=== PATIENT | male | born 1960 | race Caucasian/White ===

== ENCOUNTER 2022-11-22 16:28 | Emergency (ER) | payer BC, SELFPAY ==
[2022-11-22] VITALS (14 sets, daily range): BP systolic 127–148; BP diastolic 87–93; PULSE 73–88; RESP 16; TEMP 37–37.1; O2SAT 93–98; BMI 28.0
--- NOTE | 2022-11-22 16:41 | ED.GENADULT ---
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 He took a couple long bike rides this weekend. The air quality was listed as poor this weekend, and was very humid. He subsequently has had some tightness in his chest. No history of cardiac cardiac disease, no history of pulmonary disease. He has no family history of cardiac disease. Patient has had no swelling or bleeding. He does report that he has had a little bit of pleuritic nature of the pain is anterior chest read takes a deep breath knee has some discomfort, he has never had a blood clot, he has had no leg swelling. No trauma or injury. He also reports that he feels a little warm over the last few hours. Almost like as if he has a fever. His O2 sat is 95% on room air and he is afebrile. Related Data Home Medications Medication Instructions Recorded Confirmed tadalafil 5 mg tablet 5 mg PO DAILY 11/22/22 11/22/22 Previous Rx's Medication Instructions Recorded prednisone 20 mg tablet 20 mg PO BID #6 tabs 11/22/22 Allergies Allergy/AdvReac Type Severity Reaction Status Date / Time allopurinol Allergy Intermediate Verified 11/22/22 16:41 naproxen Allergy Intermediate Verified 11/22/22 16:41 Sulfa (Sulfonamide Allergy Intermediate Verified 11/22/22 16:41 Antibiotics) erythromycin base Allergy Mild Verified 11/22/22 16:41 Review of Systems Status of ROS: Reports: 10 or more systems reviewed and unremarkable except as noted in History and below PFSH PFS Social History Smoking Status: Former smoker Do you use any of these nicotine containing products: None How often do you have a drink containing alcohol: 2-3 times a week How many standard drinks containing alcohol do you have on a typical day: 1 or 2 How often do you have six or more drinks on one occasion: Never AUDIT-C Alcohol total score: 3 service: No Exam Narrative: Exam Narrative: Objective: Vital signs are largely unremarkable Alert orient x3 no distress, no scleral icterus, no facial asymmetry Neck is supple Chest is clear no rales or wheezing Heart rhythm regular heart murmur no ectopy noted Abdomen benign soft nontender no masses Extremities are no edema neurologic nonfocal good peripheral perfusion noted. The patient does report that he has had some chronic swelling due to muscle tear in his left ankle and calf area on the left. No other specific focal complaints or findings Const: Vital Signs, click to edit/add: Vital Signs - 24 hr 11/22/22 16:35 11/22/22 16:47 11/22/22 17:00 Temperature 98.7 F Pulse Rate 88 83 Pulse Rate [Pulse Oximeter] 88 Respiratory Rate 16 Blood Pressure Blood Pressure [Le ft Upper Arm] 148/93 H Pulse Oximetry 95 97 96 Oxygen Delivery Me thod Room Air 11/22/22 17:02 11/22/22 17:36 11/22/22 17:36 Temperature Pulse Rate 85 79 Pulse Rate [Pulse Oximeter] Respiratory Rate Blood Pressure 139/87 Blood Pressure [Le ft Upper Arm] Pulse Oximetry 96 98 98 Oxygen Delivery Me thod 11/22/22 18:00 11/22/22 18:05 11/22/22 18:21 Temperature 98.6 F Pulse Rate 80 80 79 Pulse Rate [Pulse Oximeter] Respiratory Rate Blood Pressure 138/93 H Blood Pressure [Le ft Upper Arm] Pulse Oximetry 96 94 97 Oxygen Delivery Me thod Room Air 11/22/22 18:22 11/22/22 18:41 11/22/22 19:00 Temperature Pulse Rate 79 73 74 Pulse Rate [Pulse Oximeter] Respiratory Rate Blood Pressure Blood Pressure [Le ft Upper Arm] Pulse Oximetry 97 96 96 Oxygen Delivery Me thod 11/22/22 19:01 11/22/22 19:30 11/22/22 19:32 Temperature Pulse Rate 75 74 74 Pulse Rate [Pulse Oximeter] Respiratory Rate Blood Pressure 137/91 H 127/93 H Blood Pressure [Le ft Upper Arm] Pulse Oximetry 95 93 93 Oxygen Delivery Me thod Course Vital Signs Vital signs: Initial Vital Signs Temperature 98.7 F 11/22/22 16:35 Temperature Source Temporal Artery Scan 11/22/22 16:35 Pulse Rate 88 11/22/22 16:35 Respiratory Rate 16 11/22/22 16:35 Blood Pressure 148/93 H 07/05/23 16:35 Blood Pressure Mean 111 H 11/22/22 16:35 Blood Pressure Position Supine 11/22/22 16:35 Pulse Oximetry 95 11/22/22 16:35 Oxygen Delivery Method Room Air 11/22/22 16:35 Vital Signs Temperature 98.7 F 11/22/22 16:35 Pulse Rate 88 11/22/22 16:35 Respiratory Rate 16 11/22/22 16:35 Blood Pressure 148/93 H 11/22/22 16:35 Pulse Oximetry 95 11/22/22 16:35 Oxygen Delivery Method Room Air 11/22/22 16:35 Temperature 98.6 F 11/22/22 18:21 Pulse Rate 74 11/22/22 19:32 Respiratory Rate 16 11/22/22 16:35 Blood Pressure 127/93 H 11/22/22 19:32 Pulse Oximetry 93 11/22/22 19:32 Oxygen Delivery Method Room Air 11/22/22 18:21 Medical Decision Making [facility] Narrative Medical decision making narrative: [age] year old male with chest tightness over couple day duration, unclear etiology, some pleuritic component. I think at this point simply going going into a CT scan with IV contrast to rule out PE rule out pneumonia be appropriate. He has had chest tightness and he has had some feeling of being warm or a fever the last few hours although he is afebrile now. I think doing a cardiac enzyme would be appropriate as well as ongoing hemodynamic monitoring. Will give him aspirin 324 chewable, he has tolerated that in the past where as he gets a reaction to Naprosyn. Disposition pending findings above in testing. If this is all reassuring perhaps even a steroid for few days might be helpful if he has a bronchospasm component or chest wall inflammatory component. He also may benefit from a stress echocardiogram to follow-up for completeness given his presentation. Addendum: 7:00 p.m. by my read EKG shows normal sinus rhythm normal EKG, chest CT scan pending. D-dimer just minimally elevated. Patient had been riding bike this weekend. Will check his CT. the patient also has a negative troponin. He also over the course of the ER in a couple hours prior has developed a bit of a cough, and certainly could have a mild pulmonary infection and mild bronchospasm. Will give him prednisone 50 mg now and then start 20 b.i.d. for 3 days. Again his white count hemoglobin are normal, ER profile unremarkable, troponin I negative proBNP negative, SARs/COVID/RSV negative. If CT scan of the chest looks unremarkable then will do prednisone at home light activity and follow-up with primary care in the next 2-3 days to discuss further workup such as stress echocardiogram if needed clinically. I would recommend also take an aspirin daily until he sees his doctor. No evidence of pneumonia on CT no pulmonary emboli. There is a nonspecific lymph node in the chest, stable left adrenal clot nodule and a pancreatic stable lesion that could be further characterized by MRI as an outpatient. Patient this time should stay on aspirin try the prednisone I think he may have a pulmonary mild infection that is giving him some tightness. But should consider cardiac workup with his doctor and they will see themin the next few days Lab Data Labs: Lab Results 11/22/22 Range/Units 17:18 WBC 6.17 (4.50-11.00) K/uL RBC 5.48 (4.30-5.90) m/uL Hgb 16.4 (13.5-17.5) gm/dL Hct 48.8 (37.0-53.0) % MCV 89 (80-100) fL MCH 30 (26-34) pg MCHC 34 (32-36) gm/dL RDW Coeff of Soraya 12.7 (11.5-15.5) % Plt Count 166 (140-440) K/uL Neut % (Auto) 69.8 (42.0-72.0) % Lymph % (Auto) 18.3 L (20-44) % [place] % (Auto) 9.6 (0.0-11.0) % Eos % (Auto) 1.8 (0.0-7.0) % Baso % (Auto) 0.3 (0.0-3.0) % Neut # (Auto) 4.31 (1.7-7.0) K/uL Lymph # (Auto) 1.10 (0.90-2.90) K/uL [place] # (Auto) 0.60 (0.00-0.90) K/UL Eos # (Auto) 0.11 (0.00-0.50) K/uL Baso # (Auto) 0.02 (0.00-0.30) K/uL D-Dimer Quant (PE/DVT) 0.69 H (0.00-0.50) ug/ml Sodium 138 (135-149) mmol/L Potassium 4.0 (3.6-5.1) mmol/L Chloride 103 (96-114) mmol/L Carbon Dioxide 26 (20-32) mmol/L BUN 23 (7-30) mg/dL Creatinine 1.1 (0.5-1.5) mg/dL Estimated Creat Clear 70.05 Estimated GFR 75 ml/min Glucose 111 (60-115) mg/dL Calcium 9.1 (8.4-10.6) mg/dL Total Bilirubin 0.8 (0.1-1.5) mg/dL Direct Bilirubin 0.1 (0.0-0.5) mg/dL AST 21 (12-35) U/L ALT 20 (4-50) U/L Alkaline Phosphatase 33 L (40-150) U/L Troponin I < 0.01 L (0.01-0.04) ng/mL C-Reactive Protein 0.6 (0.5-1.0) mg/dL NT-Pro-B Natriuret Pep 67 pg/mL Total Protein 7.0 (6.0-8.3) g/dL Albumin 4.4 (3.3-5.0) g/dL Amylase 70 (18-89) U/L SARS-CoV-2 (PCR) Negative SARS-CoV-2 (Negative) Influenza Type A (PCR) Negative PCR FLU A (Negative) Influenza Type B (PCR) Negative PCR FLU B (Negative) RSV (PCR) Negative PCR RSV (Negative) Discharge Plan Discharge Clinical Impression: Chest tightness, Cough Patient Disposition: Home w/ Parent or Adult Condition: Stable Additional Instructions: Light activity for few days, aspirin daily, prednisone 20 mg b.i.d. x3 days(start 11/23), recommend he follow up with regular doctor next day or 2 and consider a cardiac stress test such as a stress echocardiogram. Return if any change concerns or difficulty to the ER. Recommend an aspirin daily into the consult with your doctor Activity Level: Light activity Discharge Diet: Heart Healthy (2 gm sodium, low fat) Prescriptions: New prednisone 20 mg tablet 20 mg PO BID Qty: 6 0RF No Action tadalafil 5 mg tablet 5 mg PO DAILY Follow Up/Referrals: Marshall Ye MD [Referring] - Stand Alone Forms: [facility] Info Instructions
--- NOTE | 2022-11-22 16:49 | CRLHL7_ITS ---
For Patients: As a result of the Century Cures Act, medical imaging exams and procedure reports are released immediately into your electronic medical record. You may view this report before your referring provider. If you have questions, please contact your health care provider. INDICATION: CHEST TIGHTNESS, SOB PE VS PNEUMONIA HISTORY: Chest tightness. Shortness of breath. Evaluate pulmonary emboli versus pneumonia. COMPARISON: CT of the abdomen and pelvis, 01/10/2021. TECHNIQUE: CT of the chest, PE protocol. 95 cc of Isovue-370 IV. Coronal/sagittal reconstruction images. Findings: The thyroid gland is symmetric. There are nonenlarged and mildly enlarged mediastinal and hilar lymph nodes. Largest is seen at station 10R, measuring 13 mm. There is no evidence for an acute aortic syndrome. No pulmonary emboli are seen. No mass at the thoracic inlet. The lung windows demonstrate no endobronchial mass. There is no bronchiectasis. No architectural distortion. No peripheral reticulation. There is no honeycombing. No consolidation. No pneumothorax. Bilateral bronchial wall thickening, with borderline cylindrical bronchiectasis. Evaluation of the upper abdomen demonstrates a stable left adrenal nodule, which measures 17 millimeters, image 205, series 4. No contralateral adrenal mass. Liver morphology is non cirrhotic. There is no perihepatic ascites. The gallbladder appears contracted. Spleen size is normal. Benign left renal cyst, partially included in the field of view. There is a cystic pancreatic lesion, which is unchanged from 12/2020. This measures 8 millimeters. See series 4, image 229. The bone windows demonstrate no suspicious bone lesions. The vertebral body heights are maintained. Degenerative disc disease. Alignment is preserved on sagittal reconstruction images. Impression: 1. No pulmonary emboli. 2. No evidence on CT for right heart strain. No pulmonary infarct. 3. No acute airspace disease. Mildly enlarged, nonspecific lymph node station at 10R. 4. Stable left adrenal nodule. 5. 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 See image 229, series 4 of the current examination. MRI utilizing a pancreatic protocol may be obtained non emergently to further assess. Dictated by Brandin Garcia MD @ 11/22/2022 7:22:30 PM Please note that all CT scans at this facility use dose modulation, iterative reconstruction, and/or weight-based dosing when appropriate to reduce radiation dose to as low as reasonably achievable. Dictated by: Brandin Garcia MD @ 11/22/2022 19:22:37 (Electronically Signed)
[2022-11-22] MEDS: ASPIRIN 81 MG TAB.CHEW 324 MG PO (17:26)
[2022-11-22] MEDS: 0.9 % SODIUM CHLORIDE 500 ML 500 ML IV (17:27)
[2022-11-22 17:29] LABS: Basophils Absolute Auto 0.02 K/uL (0.00-0.30); Basophils Percent Auto 0.3 % (0.0-3.0); Eosinophils Absolute Auto 0.11 K/uL (0.00-0.50); Eosinophils Percent Auto 1.8 % (0.0-7.0); Hematocrit 48.8 % (37.0-53.0); Hemoglobin* 16.4 gm/dL (13.5-17.5); Immature Granulocytes Abs Auto 0.01 K/uL (0.00-0.30); Immature Granulocytes Pct Auto 0.2 %; Lymphocytes Percent Auto 18.3 % (20-44); Mean Corpuscular HGB Conc 34 gm/dL (32-36); Mean Corpuscular Hemoglobin 30 pg (26-34); Mean Corpuscular Volume 89 fL (80-100); Monocytes Percent Auto 9.6 % (0.0-11.0); Neutrophils Absolute Auto 4.31 K/uL (1.7-7.0); Neutrophils Percent Auto 69.8 % (42.0-72.0); Platelet Count* 166 K/uL (140-440); RDW Coefficient of Variation % 12.7 % (11.5-15.5); Red Blood Count 5.48 m/uL (4.30-5.90); White Blood Count* 6.17 K/uL (4.50-11.00)
[2022-11-22 17:32] LABS: Slide Review Reflex No
[2022-11-22 17:48] LABS: D Dimer Quantitative* 0.69 ug/ml (0.00-0.50)
[2022-11-22 17:58] LABS: Albumin* 4.4 g/dL (3.3-5.0); Chloride* 103 mmol/L (96-114); Sodium* 138 mmol/L (135-149)
[2022-11-22 18:00] LABS: Amylase* 70 U/L (18-89)
[2022-11-22 18:01] LABS: Aspartate Amino Transferase* 21 U/L (12-35); Bilirubin Direct* 0.1 mg/dL (0.0-0.5); Bilirubin Total* 0.8 mg/dL (0.1-1.5); Blood Urea Nitrogen* 23 mg/dL (7-30); Carbon Dioxide* 26 mmol/L (20-32); Creatinine* 1.1 mg/dL (0.5-1.5); Est. Creatinine Clearance* 70.05; Estimated Glomerular Filt Rate 75 ml/min; Glucose* 111 mg/dL (60-115)
[2022-11-22 18:02] LABS: Alanine Aminotransferase* 20 U/L (4-50); Alkaline Phosphatase* 33 U/L (40-150); Calcium* 9.1 mg/dL (8.4-10.6)
[2022-11-22 18:04] LABS: C Reactive Protein* 0.6 mg/dL (0.5-1.0)
[2022-11-22 18:12] LABS: PCR FLU A Negative PCR FLU A (Negative); PCR FLU B Negative PCR FLU B (Negative); PCR RSV Negative PCR RSV (Negative)
[2022-11-22 18:14] LABS: NT Pro B Type NatriureticPept* 67 pg/mL; SARS PCR* Negative SARS-CoV-2 (Negative); Troponin I* < 0.01 ng/mL (0.01-0.04)
[2022-11-22] MEDS: predniSONE 10 MG TABLET 50 MG PO (19:16)
== END 2022-11-22 19:56 | disposition home or self-care (01) ==
PROVIDERS: Emergency Provider Family Medicine
DX: R07.9 Chest pain, unspecified (principal); R05.9 Cough, unspecified
CPT/HCPCS: 36415; 71260; 80048; 80076; 82150; 83605; 83880; 84484; 85025; 85379; 86140; 87631; 93005; 94761; 99284; 99285; A9270; J7120; J7512; Q9967